=== PATIENT | male | born 1970 | race Caucasian/White ===

== ENCOUNTER 2020-05-17 14:10 | Emergency (ER) | payer OTHER ==
[~2020-05-17] VITALS: Ht 177.8 cm; Wt 95.3 kg
[2020-05-17 14:19] VITALS: Ht 177.8 cm; Wt 95.3 kg
[2020-05-17 15:37] VITALS: BP 159/85
== END 2020-05-17 15:40 ==
LOC: ED 14:10
DX: Z02.89 Encounter for other administrative examinations (principal)